=== PATIENT | female | born 1955 | race Caucasian/White ===

== ENCOUNTER 2016-12-30 10:30 | Inpatient (IN) | payer OTHER ==
[~2016-12-30] VITALS: Ht 144.8 cm; Wt 128.9 kg
[2016-12-30] VITALS (8 sets, daily range): BP systolic 130–180; BP diastolic 73–108
--- NOTE | ~2016-12-30 | PR ---
[place], [place] PROGRESS NOTE NAME: ZURI FUENTES [facility] #: [id number] UNIT #: [id number] ROOM: 428 DOCTOR: JAMEY NDIAYE III, DPM BIRTHDATE: [birth year] DOS: 01/01/2017 TIME OF DICTATION: 11:34 a.m. CHIEF COMPLAINT: Bilateral ankle pain, right greater than left. HISTORY OF PRESENT ILLNESS: This is a 61-year-old female with history of gout who denies history of diabetes, who states that she has had this ongoing right ankle pain for the last 3-4 days' duration. She states she has had these symptoms for the last 2 weeks' duration. She denies any type of injury. She does relate a history of surgery to bilateral feet in the past. Again, she denies any type of recent injury. She states she has not taken allopurinol in over a year duration. Her uric acid was over 10 on admission. PAST MEDICAL HISTORY: Significant for gout, hypertension, hypothyroidism, polycystic kidney disease. PAST SURGICAL HISTORY: History of ankle fracture, bilateral. History of tubal ligation and previous history of section. SOCIAL HISTORY: She does not drink alcohol, does not admit to any illicit drug use. She does not use tobacco. FAMILY HISTORY: Mother is at age 60 from cancer. Father at 48 of [place]. Brother had an TN at age 38. ALLERGIES: No known drug allergies. MEDICATIONS: Please refer to medication list. PHYSICAL EXAMINATION: VASCULAR: DP and PT pulses are palpable. CFT within normal limits, +2 pitting edema to bilateral lower extremities. DERMATOLOGY: The patient has dry flaky skin appreciated in bilateral lower legs. Some mild increased swelling appreciated to the right ankle. No signs of infection, no cellulitis, no open ulcerations. NEUROLOGIC: Intact protective sensation. ORTHO: Muscle strength is maintained. Negative Homans', negative calf pain. The patient has deep pain with palpation of the ankle and foot of the right as well as left lower extremity, right greater than left. Mild anterior ankle effusion on the right. ASSESSMENT: 1. Gout. 2. Edema. TREATMENT PLAN AND RECOMMENDATIONS: Findings as well as prognosis were discussed in detail with the patient. All questions were answered to her apparent satisfaction. This is a 61-year-old female seen at bedside for evaluation regarding bilateral ankle pain, right greater than left. Foot x-rays [place], [place] PROGRESS NOTE NAME: ZURI FUENTES UNIT #: [id number] ROOM: 428 DOCTOR: JAMEY NDIAYE III, DPM BIRTHDATE: [birth year] were reviewed, which showed no acute pathology. We will get updated ankle films bilateral. The patient appears to have gout based off of elevated uric acid above 10. I will continue with medication per Medicine team. At this time, we will compress the legs, which I feel will help with some of her discomfort as well. Therefore, bilateral Unna boots were applied to bilateral lower extremities. We can follow up with the patient on an outpatient basis. JAMEY NDIAYE III, DPM CM:MONTY [id number] JAMEY NDIAYE III, DPM 01/02/17 0050 interface
--- NOTE | ~2016-12-30 | PR ---
[place], [place] PROGRESS NOTE NAME: ZURI FUENTES [facility] #: [id number] UNIT #: [id number] ROOM: 428 DOCTOR: FREDDIE MATT DPM BIRTHDATE: [birth year] DOS: 01/02/2017 SUBJECTIVE: The patient presents after having Unna boots applied yesterday. The patient feels much improved with Unna boots and has much less pain to bilateral lower extremities. Again, the patient's venous Doppler and arterial Doppler were normal. The patient's radiographs, which were performed of bilateral ankle this visit revealed osteoporosis, soft tissue swelling, otherwise normal ankles. ASSESSMENT: Gout, edema, and venous insufficiency, improving with the Unna boots. PLAN: Evaluation and management discussed the patient. We will keep the Unna boots intact. They can be kept on up to a full week. The patient will be checked early next week if she is still inhouse otherwise can follow at the office. FREDDIE MATT DPM CM:MONTY [id number] FREDDIE MATT DPM 01/03/175 interface
[~2016-12-30 10:30] MED LIST: AMLODIPINE BESY10 MG PO; CLONIDINE0.2 MG PO; COLCHICINE0.6 MG PO; EC NAPROSYN500 MG; FLEXERIL10 MG PO; HYDROCODONE BIT1 T11 PO; INDOCIN50 MG PO; KEFLEX500 MG PO; LISINOPRIL10 MG PO; METOPROLOL1 MG/ML PO; MOTRIN800 MG PO; NEURONTIN300 MG PO; PRILOSEC OTC20 MG; PRILOSEC OTC20 MG PO; TRAMADOL50 MG PO; ZANAFLEX4 M1 PO; ZOCOR40 MG PO
[2016-12-30] MEDS ORDERED: NORCO 5-325 TA1 EACH PO (12:52)
[2016-12-30] MEDS ORDERED: NAPROSYN500 MG PO (12:52)
[2016-12-30 13:14] LABS: BASO % 0.4 % (0.0-1.0); EOS % 0.3 % (1.0-4.0); HEMATOCRIT 36.5 % (37.0-47.0); HEMOGLOBIN 11.9 g/dl (12.0-16.0); LYMPH # 0.7 10*3/uL (1.3-4.4); LYMPH % 6.5 % (27.0-41.0); MEAN CELL VOLUME 95.8 fl (81.0-99.0); MEAN CORPUSCULAR HGB 31.2 pg (27.0-31.0); MEAN CORPUSCULAR HGB CONC 32.6 g/dl (33.0-37.0); MEAN PLATELET VOLUME 10.1 fl (9.6-12.3); MONO # 0.7 10*3/uL (0.1-1.0); MONO % 6.7 % (3.0-9.0); NEUT # 8.8 10*3/uL (2.3-7.9); NEUT % 85.7 % (47.0-73.0); PLATELET COUNT AUTOMATED 263 10*3/uL (130-400); RED BLOOD COUNT 3.81 10*6/uL (4.10-5.10); RED CELL DISTRI WIDTH 13.1 % (0-14.5); WHITE BLOOD COUNT 10.3 10*3/uL (4.8-10.8)
[2016-12-30 13:30] LABS: ALBUMIN 3.1 gm/dl (3.1-4.5); BILIRUBIN, TOTAL 1.1 mg/dl (0.2-1.0); POTASSIUM 3.9 mmol/L (3.5-5.1); TOTAL PROTEIN 8.4 gm/dL (6.4-8.2); URIC ACID 10.6 mg/dL (2.6-6.0)
[2016-12-30 13:35] LABS: BILIRUBIN NEGATIVE (NEGATIVE); BLOOD 2+ (NEGATIVE); CLARITY CLOUDY (CLEAR); COLOR YELLOW (YELLOW); GLUCOSE NEGATIVE (NEGATIVE); KETONE 1+ (NEGATIVE); LEUKO ESTERASE 2+ (NEGATIVE); NITRITE POSITIVE (NEGATIVE); PH 5.5 (5.0-9.0); PROTEIN 2+ (NEGATIVE); SPECIFIC GRAVITY 1.025 (1.005-1.030); UROBILINOGEN 0.2 E.U./dl (0.2-1.0)
[2016-12-30 13:51] LABS: BACTERIA 3+; URINE REFLEX COMMENT YES (NO); WBC TNTC wbc/hpf (0-5)
[2016-12-30] MEDS ORDERED: LISINOPRIL20 MG PO (14:39)
[2016-12-30] MEDS ORDERED: VITAMIN D1000 IU PO (14:42)
[2016-12-30] MEDS ORDERED: ZYLOPRIM300 MG PO (14:43)
[2016-12-30] MEDS ORDERED: SYNTHROID25 MCG PO (14:43)
[2016-12-30 18:50] LABS: CKMB 0.7 ng/ml (0.5-3.6); CPK 63 U/L (26-192)
[2016-12-30 18:52] LABS: TROPONIN I < 0.015 ng/ml (<0.045)
[2016-12-31] VITALS: BP 112/63
[2016-12-31 00:39] LABS: CKMB 0.7 ng/ml (0.5-3.6); CPK 52 U/L (26-192)
[2016-12-31 00:40] LABS: TROPONIN I < 0.015 ng/ml (<0.045)
[2016-12-31 06:48] LABS: BASO # 0.1 10*3/uL (0.0-0.1); BASO % 0.6 % (0.0-1.0); EOS # 0.4 10*3/uL (0.0-0.4); EOS % 5.3 % (1.0-4.0); HEMATOCRIT 34.4 % (37.0-47.0); HEMOGLOBIN 11.2 g/dl (12.0-16.0); LYMPH # 1.2 10*3/uL (1.3-4.4); LYMPH % 15.5 % (27.0-41.0); MEAN CELL VOLUME 96.6 fl (81.0-99.0); MEAN CORPUSCULAR HGB 31.5 pg (27.0-31.0); MEAN CORPUSCULAR HGB CONC 32.6 g/dl (33.0-37.0); MEAN PLATELET VOLUME 10.5 fl (9.6-12.3); MONO # 0.8 10*3/uL (0.1-1.0); NEUT # 5.3 10*3/uL (2.3-7.9); NEUT % 68.1 % (47.0-73.0); PLATELET COUNT AUTOMATED 284 10*3/uL (130-400); RED BLOOD COUNT 3.56 10*6/uL (4.10-5.10); RED CELL DISTRI WIDTH 13.2 % (0-14.5); WHITE BLOOD COUNT 7.8 10*3/uL (4.8-10.8)
[2016-12-31 07:03] LABS: CKMB 0.7 ng/ml (0.5-3.6); CPK 39 U/L (26-192)
[2016-12-31 07:04] LABS: HEMOGLOBIN A1c 5.6 % (4.8-5.6)
[2016-12-31 07:06] LABS: TROPONIN I < 0.015 ng/ml (<0.045)
[2016-12-31 07:33] LABS: POTASSIUM 3.8 mmol/L (3.5-5.1)
[2016-12-31 07:48] LABS: FREE T4 1.65 ng/dl (0.76-1.46); MAGNESIUM 1.7 mg/dL (1.5-2.1); PHOSPHOROUS 3.4 mg/dL (2.5-4.9); THYROID STIM HORMONE (HS) 5.48 uIU/ml (0.358-4.75)
[2016-12-31 08:00] VITALS: BP 160/93
[2016-12-31 09:28] LABS: FOLIC ACID 5.48 ng/mL (>5.38)
[2016-12-31 12:00] VITALS: BP 156/89
[2016-12-31 16:00] VITALS: BP 110/71
[2016-12-31] MEDS ORDERED: WALKER (16:43)
[2016-12-31 20:00] VITALS: BP 132/73
[2017-01-01] VITALS: BP 123/73
[2017-01-01 06:40] LABS: BASO # 0.1 10*3/uL (0.0-0.1); BASO % 0.7 % (0.0-1.0); EOS # 0.7 10*3/uL (0.0-0.4); EOS % 9.8 % (1.0-4.0); HEMATOCRIT 34.4 % (37.0-47.0); HEMOGLOBIN 11.2 g/dl (12.0-16.0); LYMPH # 1.3 10*3/uL (1.3-4.4); LYMPH % 18.8 % (27.0-41.0); MEAN CORPUSCULAR HGB 31.9 pg (27.0-31.0); MEAN CORPUSCULAR HGB CONC 32.6 g/dl (33.0-37.0); MEAN PLATELET VOLUME 10.4 fl (9.6-12.3); MONO # 0.7 10*3/uL (0.1-1.0); MONO % 10.1 % (3.0-9.0); NEUT % 60.2 % (47.0-73.0); PLATELET COUNT AUTOMATED 287 10*3/uL (130-400); RED BLOOD COUNT 3.51 10*6/uL (4.10-5.10); RED CELL DISTRI WIDTH 13.2 % (0-14.5); WHITE BLOOD COUNT 6.7 10*3/uL (4.8-10.8)
[2017-01-01 07:05] LABS: POTASSIUM 3.9 mmol/L (3.5-5.1)
[2017-01-01 08:00] VITALS: BP 137/86
[2017-01-01 12:00] VITALS: BP 114/63
[2017-01-01 16:00] VITALS: BP 154/94
[2017-01-01 20:00] VITALS: BP 148/78
[2017-01-02] VITALS: BP 116/69
[2017-01-02 06:54] LABS: BASO % 0.5 % (0.0-1.0); EOS # 0.7 10*3/uL (0.0-0.4); EOS % 12.1 % (1.0-4.0); HEMATOCRIT 32.1 % (37.0-47.0); HEMOGLOBIN 10.4 g/dl (12.0-16.0); LYMPH # 0.9 10*3/uL (1.3-4.4); LYMPH % 16.2 % (27.0-41.0); MEAN CELL VOLUME 97.3 fl (81.0-99.0); MEAN CORPUSCULAR HGB 31.5 pg (27.0-31.0); MEAN CORPUSCULAR HGB CONC 32.4 g/dl (33.0-37.0); MEAN PLATELET VOLUME 10.1 fl (9.6-12.3); MONO # 0.6 10*3/uL (0.1-1.0); MONO % 10.5 % (3.0-9.0); NEUT # 3.5 10*3/uL (2.3-7.9); NEUT % 60.4 % (47.0-73.0); PLATELET COUNT AUTOMATED 232 10*3/uL (130-400); RED CELL DISTRI WIDTH 13.2 % (0-14.5); WHITE BLOOD COUNT 5.8 10*3/uL (4.8-10.8)
[2017-01-02 07:06] LABS: POTASSIUM 3.8 mmol/L (3.5-5.1)
[2017-01-02 08:00] VITALS: BP 166/82
[2017-01-02 11:38] VITALS: BP 137/89
[2017-01-02] MEDS ORDERED: NEURONTIN300 MG PO (14:00)
[2017-01-02] MEDS ORDERED: D-1000 185 MG-11 TAB PO (14:00)
[2017-01-02] MEDS ORDERED: COLCHICINE0.6 M1 PO (14:00)
[2017-01-02] MEDS ORDERED: PROCARDIA XL30 MG PO (14:05)
[2017-01-02] MEDS ORDERED: DOXYCYCLINE100 M3 PO (14:13)
[2017-01-02 16:00] VITALS: BP 160/97
[2017-01-02 20:00] VITALS: BP 145/85
[2017-01-03] VITALS: BP 105/64
[2017-01-03 08:00] VITALS: BP 150/83
== END 2017-01-03 09:43 | disposition other institution (70) | DRG 554 ==
LOC: ED 10:30 → 4E 13:39 → EDHOLD 13:39 → 4E 14:01
PROVIDERS: Hospitalist; Nurse Practitioner Family; Student in an Organized Health Care Education/Training Program
DX: M10.071 Idiopathic gout, right ankle and foot (principal); N17.9 Acute kidney failure, unspecified; E44.0 Moderate protein-calorie malnutrition; Q61.3 Polycystic kidney, unspecified; N18.3 Chronic kidney disease, stage 3 (moderate); N39.0 Urinary tract infection, site not specified; I16.0 Hypertensive urgency; D64.9 Anemia, unspecified; E03.9 Hypothyroidism, unspecified; I87.2 Venous insufficiency (chronic) (peripheral); M81.0 Age-related osteoporosis without current pathological fracture; I12.9 Hypertensive chronic kidney disease with stage 1 through stage 4 chronic kidney disease, or unspecified chronic kidney disease; Z98.51 Tubal ligation status; Z98.891 History of uterine scar from previous surgery; Z87.81 Personal history of (healed) traumatic fracture; Z82.49 Family history of ischemic heart disease and other diseases of the circulatory system; Z80.9 Family history of malignant neoplasm, unspecified; Z79.899 Other long term (current) drug therapy; Z68.33 Body mass index [BMI] 33.0-33.9, adult

== ENCOUNTER → 2017-10-02 | Outpatient (CLI) | payer OTHER ==
[~2017-10-02] MED LIST changes: +COLCHICINE0.6 M1 PO; +D-1000 185 MG-11 TAB PO; +DOXYCYCLINE100 M3 PO; +LISINOPRIL20 MG PO; +NAPROSYN500 MG PO; +NORCO 5-325 TA1 EACH PO; +PROCARDIA XL30 MG PO; +SYNTHROID25 MCG PO; +VITAMIN D1000 IU PO; +WALKER; +ZYLOPRIM300 MG PO
[2017-10-02 11:05] LABS: BASO % 0.4 % (0.0-1.0); EOS # 0.6 10*3/uL (0.0-0.4); EOS % 7.7 % (1.0-4.0); HEMATOCRIT 36.6 % (37.0-47.0); HEMOGLOBIN 11.7 g/dl (12.0-16.0); LYMPH # 1.6 10*3/uL (1.3-4.4); LYMPH % 21.6 % (27.0-41.0); MEAN CELL VOLUME 97.1 fl (81.0-99.0); MEAN PLATELET VOLUME 11.5 fl (9.6-12.3); MONO # 0.5 10*3/uL (0.1-1.0); MONO % 7.4 % (3.0-9.0); NEUT # 4.5 10*3/uL (2.3-7.9); NEUT % 62.5 % (47.0-73.0); PLATELET COUNT AUTOMATED 264 10*3/uL (130-400); RED BLOOD COUNT 3.77 10*6/uL (4.10-5.10); WHITE BLOOD COUNT 7.2 10*3/uL (4.8-10.8)
[2017-10-02 11:22] LABS: ALBUMIN 3.7 gm/dl (3.1-4.5); CREATININE 1.71 mg/dL (0.55-1.02); FREE T4 1.23 ng/dl (0.76-1.46); POTASSIUM 4.2 mmol/L (3.5-5.1); TOTAL PROTEIN 8.4 gm/dL (6.4-8.2)
[2017-10-02 11:27] LABS: THYROID STIM HORMONE (HS) 7.75 uIU/ml (0.358-4.75)
[2017-10-03 09:07] LABS: CREATININE,URINE 79.9 mg/dL (Not Estab.); MICRO ALBUMIN/CRE RATIO 36.7 (0.0-30.0)
== END | disposition home or self-care (01) ==
LOC: LAB 10:16
PROVIDERS: Family Medicine
DX: I10 Essential (primary) hypertension (principal); E55.9 Vitamin D deficiency, unspecified; E03.1 Congenital hypothyroidism without goiter

== ENCOUNTER → 2017-12-11 | Outpatient (CLI) | payer OTHER ==
[2017-12-11 10:19] LABS: BASO # 0.1 10*3/uL (0.0-0.1); BASO % 0.8 % (0.0-1.0); EOS # 0.6 10*3/uL (0.0-0.4); HEMATOCRIT 39.4 % (37.0-47.0); HEMOGLOBIN 12.7 g/dl (12.0-16.0); LYMPH # 2.3 10*3/uL (1.3-4.4); LYMPH % 31.2 % (27.0-41.0); MEAN CELL VOLUME 94.5 fl (81.0-99.0); MEAN CORPUSCULAR HGB 30.5 pg (27.0-31.0); MEAN CORPUSCULAR HGB CONC 32.2 g/dl (33.0-37.0); MEAN PLATELET VOLUME 11.3 fl (9.6-12.3); MONO # 0.6 10*3/uL (0.1-1.0); MONO % 8.5 % (3.0-9.0); NEUT # 3.7 10*3/uL (2.3-7.9); NEUT % 51.2 % (47.0-73.0); PLATELET COUNT AUTOMATED 251 10*3/uL (130-400); RED BLOOD COUNT 4.17 10*6/uL (4.10-5.10); RED CELL DISTRI WIDTH 13.9 % (0-14.5); WHITE BLOOD COUNT 7.3 10*3/uL (4.8-10.8)
[2017-12-11 10:43] LABS: ALBUMIN 3.4 gm/dl (3.1-4.5); CREATININE 1.48 mg/dL (0.55-1.02); TOTAL PROTEIN 8.1 gm/dL (6.4-8.2); URIC ACID 8.1 mg/dL (2.6-6.0)
[2017-12-11 10:52] LABS: THYROID STIM HORMONE (HS) 5.74 uIU/ml (0.358-4.75)
== END | disposition home or self-care (01) ==
LOC: LAB 09:26
PROVIDERS: Family Medicine
DX: M10.9 Gout, unspecified (principal); E55.9 Vitamin D deficiency, unspecified; I10 Essential (primary) hypertension

== ENCOUNTER 2021-04-12 19:16 | Inpatient (IN) | payer MEDICARE, MEDICAID ==
[~2021-04-12] VITALS: Ht 162.6 cm; Wt 108.4 kg
[2021-04-12 20:03] VITALS: BP 153/89
[2021-04-12 20:18] LABS: BASO % 0.5 % (0.0-1.0); EOS # 0.3 10*3/uL (0.0-0.4); EOS % 3.1 % (1.0-4.0); HEMATOCRIT 32.2 % (37.0-47.0); LYMPH # 0.8 10*3/uL (1.3-4.4); LYMPH % 9.7 % (27.0-41.0); MEAN CELL VOLUME 100.6 fl (81.0-99.0); MEAN CORPUSCULAR HGB 30.9 pg (27.0-31.0); MEAN CORPUSCULAR HGB CONC 30.7 g/dl (33.0-37.0); MEAN PLATELET VOLUME 11.8 fl (9.6-12.3); MONO # 0.6 10*3/uL (0.1-1.0); MONO % 7.5 % (3.0-9.0); NEUT # 6.4 10*3/uL (2.3-7.9); PLATELET COUNT AUTOMATED 251 10*3/uL (130-400); RED CELL DISTRI WIDTH 15.1 % (0-14.5); WHITE BLOOD COUNT 8.2 10*3/uL (4.8-10.8)
[2021-04-12 20:38] LABS: ALBUMIN 2.8 gm/dl (3.1-4.5); ALKALINE PHOSPHATASE 117 U/L (45-117); BUN 25 mg/dl (7-24); CHLORIDE 108 mmol/L (98-107); CREATININE 2.92 mg/dL (0.55-1.02); POTASSIUM 5.2 mmol/L (3.5-5.1); SGOT/AST 33 IU/L (3-35); SGPT/ALT 23 U/L (12-78); SODIUM 139 mmol/L (136-145); TOTAL PROTEIN 8.6 gm/dL (6.4-8.2)
[2021-04-12 20:39] LABS: TROPONIN I < 0.015 ng/ml (<0.045)
[2021-04-12 22:51] VITALS: BP 145/71
[2021-04-12 23:37] LABS: BILIRUBIN Negative (Negative); BLOOD 1+ (Negative); CLARITY Turbid (Clear); COLOR Yellow (Yellow); GLUCOSE Negative (Negative); KETONE Trace (Negative); LEUKO ESTERASE 3+ (Negative); NITRITE Positive (Negative); PH 5.5 (4.5-8.0); SPECIFIC GRAVITY 1.015 (1.001-1.030)
[2021-04-12 23:48] LABS: BACTERIA 4+; EPITHELIAL CELLS TNTC; WBC 51-100 wbc/hpf (0-5)
[2021-04-12 23:49] LABS: RBC 16-20 rbc/hpf (0-2)
[2021-04-13] VITALS (7 sets, daily range): BP systolic 100–155; BP diastolic 47–92
[2021-04-13 05:16] LABS: CREATININE 2.56 mg/dL (0.55-1.02); POTASSIUM 4.9 mmol/L (3.5-5.1)
[2021-04-13 06:34] LABS: BASO % 0.5 % (0.0-1.0); EOS # 0.1 10*3/uL (0.0-0.4); EOS % 1.2 % (1.0-4.0); HEMATOCRIT 25.8 % (37.0-47.0); LYMPH # 0.7 10*3/uL (1.3-4.4); LYMPH % 12.3 % (27.0-41.0); MEAN CELL VOLUME 100.4 fl (81.0-99.0); MEAN CORPUSCULAR HGB 30.7 pg (27.0-31.0); MEAN CORPUSCULAR HGB CONC 30.6 g/dl (33.0-37.0); MEAN PLATELET VOLUME 12.3 fl (9.6-12.3); MONO # 0.5 10*3/uL (0.1-1.0); NEUT # 4.4 10*3/uL (2.3-7.9); NEUT % 76.7 % (47.0-73.0); RED BLOOD COUNT 2.57 10*6/uL (4.10-5.10); RED CELL DISTRI WIDTH 15.2 % (0-14.5); WHITE BLOOD COUNT 5.8 10*3/uL (4.8-10.8)
[2021-04-13 07:44] LABS: PLATELET COUNT AUTOMATED 163 10*3/uL (130-400)
[2021-04-14] VITALS: BP 121/66
[2021-04-14 04:00] VITALS: BP 117/64
[2021-04-14 06:06] LABS: BASO % 0.5 % (0.0-1.0); EOS # 0.4 10*3/uL (0.0-0.4); EOS % 9.7 % (1.0-4.0); HEMATOCRIT 23.7 % (37.0-47.0); LYMPH # 1.2 10*3/uL (1.3-4.4); LYMPH % 29.7 % (27.0-41.0); MEAN CELL VOLUME 100.9 fl (81.0-99.0); MEAN CORPUSCULAR HGB 30.6 pg (27.0-31.0); MEAN CORPUSCULAR HGB CONC 30.4 g/dl (33.0-37.0); MEAN PLATELET VOLUME 12.7 fl (9.6-12.3); MONO # 0.4 10*3/uL (0.1-1.0); MONO % 9.9 % (3.0-9.0); NEUT % 49.7 % (47.0-73.0); PLATELET COUNT AUTOMATED 134 10*3/uL (130-400); RED BLOOD COUNT 2.35 10*6/uL (4.10-5.10); RED CELL DISTRI WIDTH 15.2 % (0-14.5)
[2021-04-14 06:50] LABS: CREATININE 2.28 mg/dL (0.55-1.02); POTASSIUM 4.6 mmol/L (3.5-5.1)
[2021-04-14 08:00] VITALS: BP 129/69
[2021-04-14 12:00] VITALS: BP 120/76
[2021-04-14 16:00] VITALS: BP 136/77
[2021-04-14 20:00] VITALS: BP 121/58
[2021-04-15] VITALS: BP 133/60
[2021-04-15 06:13] LABS: BASO % 0.7 % (0.0-1.0); EOS # 0.6 10*3/uL (0.0-0.4); EOS % 13.7 % (1.0-4.0); HEMATOCRIT 25.1 % (37.0-47.0); LYMPH % 25.9 % (27.0-41.0); MEAN CELL VOLUME 101.6 fl (81.0-99.0); MEAN CORPUSCULAR HGB 31.6 pg (27.0-31.0); MEAN CORPUSCULAR HGB CONC 31.1 g/dl (33.0-37.0); MEAN PLATELET VOLUME 12.1 fl (9.6-12.3); MONO # 0.4 10*3/uL (0.1-1.0); NEUT % 49.2 % (47.0-73.0); PLATELET COUNT AUTOMATED 140 10*3/uL (130-400); RED BLOOD COUNT 2.47 10*6/uL (4.10-5.10); RED CELL DISTRI WIDTH 15.1 % (0-14.5)
[2021-04-15 06:29] LABS: CREATININE 1.99 mg/dL (0.55-1.02); POTASSIUM 4.4 mmol/L (3.5-5.1)
[2021-04-15 06:36] LABS: THYROID STIM HORMONE (HS) 5.41 uIU/ml (0.358-4.75)
[2021-04-15 07:52] LABS: FERRITIN 14.6 ng/mL (10.0-291.0); PTH INTACT 278.1 pg/mL (18.5-88.0); VITAMIN D, 25-HYDROXY 10.6 ng/mL (30-100)
[2021-04-15 08:48] VITALS: BP 155/78
[2021-04-15 12:00] VITALS: BP 155/78
[2021-04-15 16:00] VITALS: BP 150/79
[2021-04-15 20:00] VITALS: BP 146/64
[2021-04-16] VITALS: BP 157/94
[2021-04-16 06:46] LABS: CREATININE 1.76 mg/dL (0.55-1.02); POTASSIUM 4.2 mmol/L (3.5-5.1)
[2021-04-16 07:02] LABS: BASO % 0.9 % (0.0-1.0); EOS # 0.6 10*3/uL (0.0-0.4); EOS % 15.2 % (1.0-4.0); HEMATOCRIT 28.6 % (37.0-47.0); LYMPH % 23.2 % (27.0-41.0); MEAN CORPUSCULAR HGB 30.8 pg (27.0-31.0); MEAN CORPUSCULAR HGB CONC 28.7 g/dl (33.0-37.0); MEAN PLATELET VOLUME 11.8 fl (9.6-12.3); MONO # 0.4 10*3/uL (0.1-1.0); MONO % 9.5 % (3.0-9.0); NEUT # 2.1 10*3/uL (2.3-7.9); NEUT % 50.7 % (47.0-73.0); PLATELET COUNT AUTOMATED 146 10*3/uL (130-400); RED BLOOD COUNT 2.66 10*6/uL (4.10-5.10); WHITE BLOOD COUNT 4.2 10*3/uL (4.8-10.8)
[2021-04-16 07:10] LABS: MEAN CELL VOLUME 107.5 fl (81.0-99.0)
[2021-04-16 08:00] VITALS: BP 152/79
[2021-04-16 12:00] VITALS: BP 148/94
[2021-04-16 16:00] VITALS: BP 136/77
[2021-04-16 20:00] VITALS: BP 135/71
[2021-04-17] VITALS: BP 141/86
[2021-04-17 06:54] LABS: CREATININE 1.59 mg/dL (0.55-1.02); POTASSIUM 4.5 mmol/L (3.5-5.1)
[2021-04-17 07:20] LABS: BASO % 0.9 % (0.0-1.0); EOS # 0.7 10*3/uL (0.0-0.4); EOS % 15.8 % (1.0-4.0); HEMATOCRIT 27.5 % (37.0-47.0); LYMPH # 1.1 10*3/uL (1.3-4.4); LYMPH % 26.4 % (27.0-41.0); MEAN CORPUSCULAR HGB 31.1 pg (27.0-31.0); MEAN CORPUSCULAR HGB CONC 30.9 g/dl (33.0-37.0); MEAN PLATELET VOLUME 12.2 fl (9.6-12.3); MONO # 0.4 10*3/uL (0.1-1.0); MONO % 9.4 % (3.0-9.0); PLATELET COUNT AUTOMATED 168 10*3/uL (130-400); RED BLOOD COUNT 2.73 10*6/uL (4.10-5.10); RED CELL DISTRI WIDTH 14.8 % (0-14.5); WHITE BLOOD COUNT 4.3 10*3/uL (4.8-10.8)
[2021-04-17 07:23] LABS: MEAN CELL VOLUME 100.7 fl (81.0-99.0)
[2021-04-17 07:44] LABS: THYROID STIM HORMONE (HS) 10.2 uIU/ml (0.358-4.75)
[2021-04-17 08:00] VITALS: BP 110/64
[2021-04-17 08:40] LABS: PTH INTACT 271.9 pg/mL (18.5-88.0); VITAMIN D, 25-HYDROXY 12.9 ng/mL (30-100)
[2021-04-17 12:00] VITALS: BP 143/60
[2021-04-17] MEDS ORDERED: CIPRO500 MG PO (13:31)
[2021-04-17] MEDS ORDERED: IRON325 M1 PO (13:31)
[2021-04-17] MEDS ORDERED: Synthroid,Levo50 MCG PO (13:32)
[2021-04-17] MEDS ORDERED: Vitamin D (50,000 UN PO (13:32)
[2021-04-17 16:00] VITALS: BP 158/88
[2021-04-17 20:00] VITALS: BP 142/76
[2021-04-18] VITALS: BP 145/59
[2021-04-18 07:14] LABS: BASO % 0.7 % (0.0-1.0); EOS # 0.7 10*3/uL (0.0-0.4); EOS % 17.7 % (1.0-4.0); HEMATOCRIT 26.6 % (37.0-47.0); LYMPH % 24.3 % (27.0-41.0); MEAN CELL VOLUME 102.7 fl (81.0-99.0); MEAN CORPUSCULAR HGB 31.3 pg (27.0-31.0); MEAN CORPUSCULAR HGB CONC 30.5 g/dl (33.0-37.0); MEAN PLATELET VOLUME 12.2 fl (9.6-12.3); MONO # 0.4 10*3/uL (0.1-1.0); MONO % 9.7 % (3.0-9.0); NEUT # 1.9 10*3/uL (2.3-7.9); NEUT % 47.1 % (47.0-73.0); PLATELET COUNT AUTOMATED 168 10*3/uL (130-400); RED BLOOD COUNT 2.59 10*6/uL (4.10-5.10); RED CELL DISTRI WIDTH 14.8 % (0-14.5); WHITE BLOOD COUNT 4.1 10*3/uL (4.8-10.8)
[2021-04-18 08:00] VITALS: BP 159/88
[2021-04-18 08:09] LABS: ALBUMIN 2.1 gm/dl (3.1-4.5); CREATININE 1.45 mg/dL (0.55-1.02); POTASSIUM 5.3 mmol/L (3.5-5.1)
[2021-04-18 08:18] LABS: TOTAL PROTEIN 6.4 gm/dL (6.4-8.2)
[2021-04-18 12:00] VITALS: BP 156/78
[2021-04-18 13:06] LABS: BILIRUBIN Negative (Negative); BLOOD Negative (Negative); CLARITY Clear (Clear); COLOR Yellow (Yellow); GLUCOSE Negative (Negative); KETONE Negative (Negative); LEUKO ESTERASE Negative (Negative); NITRITE Negative (Negative); PH 5.5 (4.5-8.0); SPECIFIC GRAVITY 1.015 (1.001-1.030); UROBILINOGEN 0.2 E.U./dl (0.0-1.0)
[2021-04-18 13:18] LABS: EPITHELIAL CELLS 21-30; RBC 0-2 rbc/hpf (0-2)
[2021-04-18 13:19] LABS: BACTERIA TRACE
[2021-04-18 16:00] VITALS: BP 129/57; BP 142/88
[2021-04-18 20:00] VITALS: BP 158/86
[2021-04-19] VITALS: BP 129/60
[2021-04-19 06:25] LABS: BASO # 0.1 10*3/uL (0.0-0.1); BASO % 1.2 % (0.0-1.0); EOS # 0.7 10*3/uL (0.0-0.4); EOS % 15.8 % (1.0-4.0); LYMPH # 1.2 10*3/uL (1.3-4.4); LYMPH % 27.7 % (27.0-41.0); MEAN CELL VOLUME 102.4 fl (81.0-99.0); MEAN CORPUSCULAR HGB 30.7 pg (27.0-31.0); MEAN PLATELET VOLUME 12.1 fl (9.6-12.3); MONO # 0.5 10*3/uL (0.1-1.0); MONO % 10.5 % (3.0-9.0); NEUT # 1.9 10*3/uL (2.3-7.9); NEUT % 44.6 % (47.0-73.0); PLATELET COUNT AUTOMATED 162 10*3/uL (130-400); RED BLOOD COUNT 2.54 10*6/uL (4.10-5.10); RED CELL DISTRI WIDTH 14.8 % (0-14.5); WHITE BLOOD COUNT 4.3 10*3/uL (4.8-10.8)
[2021-04-19 06:27] LABS: ALBUMIN 2.1 gm/dl (3.1-4.5); POTASSIUM 5.4 mmol/L (3.5-5.1)
[2021-04-19 06:37] LABS: CREATININE 1.43 mg/dL (0.55-1.02); TOTAL PROTEIN 6.1 gm/dL (6.4-8.2)
[2021-04-19 08:00] VITALS: BP 126/63
[2021-04-19 12:00] VITALS: BP 138/79
[2021-04-19 16:00] VITALS: BP 135/80
[2021-04-19 18:38] LABS: CREATININE 1.72 mg/dL (0.55-1.02)
[2021-04-19] MEDS ORDERED: LASIX20 MG PO (18:53)
== END 2021-04-19 20:27 | disposition home or self-care (01) | DRG 871 ==
LOC: ED 19:16 → EDHOLD 04-13 01:21 → 4E 04-13 01:21 → 5E 04-18 23:01
PROVIDERS: Emergency Medicine; Internal Medicine; Internal Medicine Nephrology; Podiatrist Foot & Ankle Surgery; ADMIT Internal Medicine; ATTEND Internal Medicine
PROC: 0HBRXZZ Excision of Toe Nail, External Approach (ICD-10-PCS; principal; 2021-04-13)
PROC: 0HBRXZZ Excision of Toe Nail, External Approach (ICD-10-PCS; 2021-04-13)
PROC: 0HBRXZZ Excision of Toe Nail, External Approach (ICD-10-PCS; 2021-04-13)
PROC: 0HBRXZZ Excision of Toe Nail, External Approach (ICD-10-PCS; 2021-04-13)
PROC: 0HBRXZZ Excision of Toe Nail, External Approach (ICD-10-PCS; 2021-04-13)
PROC: 0HBRXZZ Excision of Toe Nail, External Approach (ICD-10-PCS; 2021-04-13)
PROC: 0HBRXZZ Excision of Toe Nail, External Approach (ICD-10-PCS; 2021-04-13)
PROC: 0HBRXZZ Excision of Toe Nail, External Approach (ICD-10-PCS; 2021-04-13)
PROC: 0HBRXZZ Excision of Toe Nail, External Approach (ICD-10-PCS; 2021-04-13)
PROC: 0HBRXZZ Excision of Toe Nail, External Approach (ICD-10-PCS; 2021-04-13)
DX: A41.9 Sepsis, unspecified organism (principal); G93.41 Metabolic encephalopathy; E43 Unspecified severe protein-calorie malnutrition; N17.0 Acute kidney failure with tubular necrosis; N39.0 Urinary tract infection, site not specified; E87.2 Acidosis; Q61.3 Polycystic kidney, unspecified; R31.9 Hematuria, unspecified; M1A.9XX0 Chronic gout, unspecified, without tophus (tophi); S31.000A Unspecified open wound of lower back and pelvis without penetration into retroperitoneum, initial encounter; S81.809A Unspecified open wound, unspecified lower leg, initial encounter; R21 Rash and other nonspecific skin eruption; B96.20 Unspecified Escherichia coli [E. coli] as the cause of diseases classified elsewhere; S41.101A Unspecified open wound of right upper arm, initial encounter; M89.9 Disorder of bone, unspecified; D63.8 Anemia in other chronic diseases classified elsewhere; E66.01 Morbid (severe) obesity due to excess calories; B35.1 Tinea unguium; I12.9 Hypertensive chronic kidney disease with stage 1 through stage 4 chronic kidney disease, or unspecified chronic kidney disease; N18.32 Chronic kidney disease, stage 3b; D50.9 Iron deficiency anemia, unspecified; B88.8 Other specified infestations; R65.20 Severe sepsis without septic shock; E03.9 Hypothyroidism, unspecified; E87.5 Hyperkalemia; E87.8 Other disorders of electrolyte and fluid balance, not elsewhere classified; R73.9 Hyperglycemia, unspecified; D72.10 Eosinophilia, unspecified; S41.102A Unspecified open wound of left upper arm, initial encounter; X58.XXXA Exposure to other specified factors, initial encounter; Y93.89 Activity, other specified; Y92.89 Other specified places as the place of occurrence of the external cause; Y99.8 Other external cause status; Z98.51 Tubal ligation status; Z98.891 History of uterine scar from previous surgery; Z82.49 Family history of ischemic heart disease and other diseases of the circulatory system

== ENCOUNTER 2021-05-15 17:04 | Inpatient (IN) | payer MEDICARE ==
[~2021-05-15] VITALS: Ht 162.6 cm; Wt 106.1 kg
[~2021-05-15 17:04] MED LIST changes: +CIPRO500 MG PO; +IRON325 M1 PO; +LASIX20 MG PO; +Synthroid,Levo50 MCG PO; +Vitamin D (50,000 UN PO
[2021-05-15 18:26] VITALS: BP 124/69
[2021-05-15 18:36] LABS: BASO % 0.2 % (0.0-1.0); EOS # 0.1 10*3/uL (0.0-0.4); EOS % 1.8 % (1.0-4.0); HEMATOCRIT 31.5 % (37.0-47.0); LYMPH # 0.6 10*3/uL (1.3-4.4); LYMPH % 10.7 % (27.0-41.0); MEAN CELL VOLUME 100.3 fl (81.0-99.0); MEAN CORPUSCULAR HGB 30.6 pg (27.0-31.0); MEAN CORPUSCULAR HGB CONC 30.5 g/dl (33.0-37.0); MEAN PLATELET VOLUME 11.9 fl (9.6-12.3); MONO # 0.4 10*3/uL (0.1-1.0); MONO % 6.5 % (3.0-9.0); NEUT # 4.4 10*3/uL (2.3-7.9); NEUT % 80.3 % (47.0-73.0); PLATELET COUNT AUTOMATED 154 10*3/uL (130-400); RED BLOOD COUNT 3.14 10*6/uL (4.10-5.10); RED CELL DISTRI WIDTH 15.3 % (0-14.5); WHITE BLOOD COUNT 5.5 10*3/uL (4.8-10.8)
[2021-05-15 18:54] LABS: ALBUMIN 2.5 gm/dl (3.1-4.5); CREATININE 1.97 mg/dL (0.55-1.02); POTASSIUM 4.5 mmol/L (3.5-5.1); TOTAL PROTEIN 7.4 gm/dL (6.4-8.2)
[2021-05-15 20:53] LABS: BILIRUBIN Negative (Negative); BLOOD Negative (Negative); CLARITY Cloudy (Clear); COLOR Yellow (Yellow); GLUCOSE Negative (Negative); KETONE Trace (Negative); LEUKO ESTERASE 3+ (Negative); NITRITE Negative (Negative); SPECIFIC GRAVITY 1.015 (1.001-1.030)
[2021-05-15 21:11] LABS: BACTERIA 4+; EPITHELIAL CELLS 16-20; WBC 51-100 wbc/hpf (0-5)
[2021-05-16 00:46] VITALS: BP 139/67
[2021-05-16 05:33] LABS: ALBUMIN 2.3 gm/dl (3.1-4.5); CREATININE 1.89 mg/dL (0.55-1.02); TOTAL PROTEIN 6.5 gm/dL (6.4-8.2)
[2021-05-16 05:39] LABS: THYROID STIM HORMONE (HS) 6.22 uIU/ml (0.358-4.75)
[2021-05-16 06:17] LABS: BASO % 0.5 % (0.0-1.0); EOS # 0.2 10*3/uL (0.0-0.4); EOS % 3.7 % (1.0-4.0); HEMATOCRIT 28.7 % (37.0-47.0); LYMPH # 0.8 10*3/uL (1.3-4.4); LYMPH % 19.6 % (27.0-41.0); MEAN CORPUSCULAR HGB 30.7 pg (27.0-31.0); MEAN CORPUSCULAR HGB CONC 30.7 g/dl (33.0-37.0); MEAN PLATELET VOLUME 12.5 fl (9.6-12.3); MONO # 0.4 10*3/uL (0.1-1.0); MONO % 10.3 % (3.0-9.0); NEUT # 2.7 10*3/uL (2.3-7.9); NEUT % 65.7 % (47.0-73.0); PLATELET COUNT AUTOMATED 136 10*3/uL (130-400); RED BLOOD COUNT 2.87 10*6/uL (4.10-5.10); RED CELL DISTRI WIDTH 15.1 % (0-14.5); WHITE BLOOD COUNT 4.1 10*3/uL (4.8-10.8)
[2021-05-16 06:26] LABS: INTERNATIONAL NORM RATIO 1.3 (2.0-3.5)
[2021-05-16 07:24] LABS: VITAMIN D, 25-HYDROXY 26.3 ng/mL (30-100)
[2021-05-16 09:28] VITALS: BP 125/69
[2021-05-17 00:42] VITALS: BP 125/69
[2021-05-17 08:00] VITALS: BP 109/56
[2021-05-17 11:09] LABS: BASO % 0.5 % (0.0-1.0); EOS # 0.5 10*3/uL (0.0-0.4); EOS % 7.1 % (1.0-4.0); HEMATOCRIT 29.5 % (37.0-47.0); LYMPH # 1.9 10*3/uL (1.3-4.4); LYMPH % 29.9 % (27.0-41.0); MEAN CELL VOLUME 100.7 fl (81.0-99.0); MEAN CORPUSCULAR HGB 31.1 pg (27.0-31.0); MEAN CORPUSCULAR HGB CONC 30.8 g/dl (33.0-37.0); MEAN PLATELET VOLUME 12.3 fl (9.6-12.3); MONO # 0.5 10*3/uL (0.1-1.0); MONO % 7.3 % (3.0-9.0); NEUT # 3.5 10*3/uL (2.3-7.9); NEUT % 54.9 % (47.0-73.0); PLATELET COUNT AUTOMATED 147 10*3/uL (130-400); RED BLOOD COUNT 2.93 10*6/uL (4.10-5.10); RED CELL DISTRI WIDTH 15.2 % (0-14.5); WHITE BLOOD COUNT 6.5 10*3/uL (4.8-10.8)
[2021-05-17 11:17] LABS: CREATININE 2.53 mg/dL (0.55-1.02); POTASSIUM 4.1 mmol/L (3.5-5.1)
[2021-05-17 12:00] VITALS: BP 104/56
[2021-05-17 12:56] LABS: ACT PARTIAL THROMBO TIME 24.9 SECONDS (20.0-32.1); INTERNATIONAL NORM RATIO 1.3 (2.0-3.5)
[2021-05-17 16:00] VITALS: BP 104/68
[2021-05-17 20:00] VITALS: BP 99/54
[2021-05-18] VITALS: BP 99/50
[2021-05-18 06:23] LABS: POTASSIUM 4.1 mmol/L (3.5-5.1)
[2021-05-18 06:30] LABS: CREATININE 2.17 mg/dL (0.55-1.02)
[2021-05-18 06:36] LABS: BASO % 0.5 % (0.0-1.0); EOS # 0.4 10*3/uL (0.0-0.4); EOS % 9.5 % (1.0-4.0); HEMATOCRIT 24.6 % (37.0-47.0); LYMPH # 1.3 10*3/uL (1.3-4.4); LYMPH % 31.8 % (27.0-41.0); MEAN CELL VOLUME 101.2 fl (81.0-99.0); MEAN CORPUSCULAR HGB 31.3 pg (27.0-31.0); MEAN CORPUSCULAR HGB CONC 30.9 g/dl (33.0-37.0); MEAN PLATELET VOLUME 12.6 fl (9.6-12.3); MONO # 0.3 10*3/uL (0.1-1.0); MONO % 8.3 % (3.0-9.0); NEUT % 49.7 % (47.0-73.0); RED BLOOD COUNT 2.43 10*6/uL (4.10-5.10); RED CELL DISTRI WIDTH 15.3 % (0-14.5); WHITE BLOOD COUNT 4.1 10*3/uL (4.8-10.8)
[2021-05-18 06:50] LABS: PLATELET COUNT AUTOMATED 93 10*3/uL (130-400)
[2021-05-18 08:00] VITALS: BP 124/58
[2021-05-18 12:00] VITALS: BP 110/60
[2021-05-18 16:00] VITALS: BP 110/53
[2021-05-18 18:23] LABS: HEMATOCRIT 27.7 % (37.0-47.0); MEAN CORPUSCULAR HGB 30.7 pg (27.0-31.0); MEAN CORPUSCULAR HGB CONC 28.9 g/dl (33.0-37.0); MEAN PLATELET VOLUME 13.8 fl (9.6-12.3); RED BLOOD COUNT 2.61 10*6/uL (4.10-5.10); RED CELL DISTRI WIDTH 15.5 % (0-14.5); WHITE BLOOD COUNT 4.1 10*3/uL (4.8-10.8)
[2021-05-18 18:44] LABS: MEAN CELL VOLUME 106.1 fl (81.0-99.0); PLATELET COUNT AUTOMATED 53 10*3/uL (130-400)
[2021-05-18 18:57] LABS: BURR CELLS MODERATE; PLATELET SUFFICIENCY LOW (NORMAL); TOTAL CELLS COUNTED 100 #CELLS
[2021-05-18 20:00] VITALS: BP 115/61
[2021-05-19] VITALS: BP 105/53
[2021-05-19 07:25] LABS: CREATININE 1.88 mg/dL (0.55-1.02); POTASSIUM 4.2 mmol/L (3.5-5.1)
[2021-05-19 07:41] LABS: ACT PARTIAL THROMBO TIME 39.6 SECONDS (20.0-32.1)
[2021-05-19 07:52] LABS: BASO % 0.7 % (0.0-1.0); EOS # 0.5 10*3/uL (0.0-0.4); EOS % 11.6 % (1.0-4.0); HEMATOCRIT 25.4 % (37.0-47.0); LYMPH % 25.6 % (27.0-41.0); MEAN CORPUSCULAR HGB CONC 30.3 g/dl (33.0-37.0); MEAN PLATELET VOLUME 12.6 fl (9.6-12.3); MONO # 0.5 10*3/uL (0.1-1.0); MONO % 11.8 % (3.0-9.0); NEUT % 49.8 % (47.0-73.0); RED BLOOD COUNT 2.48 10*6/uL (4.10-5.10); RED CELL DISTRI WIDTH 15.4 % (0-14.5); WHITE BLOOD COUNT 4.1 10*3/uL (4.8-10.8)
[2021-05-19 07:57] LABS: MEAN CELL VOLUME 102.4 fl (81.0-99.0); PLATELET COUNT AUTOMATED 85 10*3/uL (130-400)
[2021-05-19 08:00] VITALS: BP 128/66
[2021-05-19 12:00] VITALS: BP 127/75
[2021-05-19 16:00] VITALS: BP 131/80
[2021-05-19 20:00] VITALS: BP 145/66
[2021-05-20] VITALS (7 sets, daily range): BP systolic 135–177; BP diastolic 56–86
[2021-05-20 06:12] LABS: EOS % 0.4 % (1.0-4.0); HEMATOCRIT 27.5 % (37.0-47.0); LYMPH # 0.3 10*3/uL (1.3-4.4); LYMPH % 13.4 % (27.0-41.0); MEAN CELL VOLUME 101.1 fl (81.0-99.0); MEAN CORPUSCULAR HGB 31.3 pg (27.0-31.0); MEAN CORPUSCULAR HGB CONC 30.9 g/dl (33.0-37.0); MONO % 1.7 % (3.0-9.0); NEUT # 1.9 10*3/uL (2.3-7.9); NEUT % 83.2 % (47.0-73.0); PLATELET COUNT AUTOMATED 87 10*3/uL (130-400); RED BLOOD COUNT 2.72 10*6/uL (4.10-5.10); RED CELL DISTRI WIDTH 15.2 % (0-14.5); WHITE BLOOD COUNT 2.3 10*3/uL (4.8-10.8)
[2021-05-20 06:39] LABS: ALBUMIN 2.1 gm/dl (3.1-4.5); CREATININE 1.69 mg/dL (0.55-1.02); POTASSIUM 4.6 mmol/L (3.5-5.1); TOTAL PROTEIN 6.7 gm/dL (6.4-8.2)
[2021-05-21] VITALS: BP 133/74
[2021-05-21 07:00] LABS: HEMATOCRIT 25.6 % (37.0-47.0); MEAN CELL VOLUME 98.5 fl (81.0-99.0); MEAN CORPUSCULAR HGB 31.5 pg (27.0-31.0); MEAN PLATELET VOLUME 13.4 fl (9.6-12.3); PLATELET COUNT AUTOMATED 84 10*3/uL (130-400); RED CELL DISTRI WIDTH 15.5 % (0-14.5); WHITE BLOOD COUNT 4.7 10*3/uL (4.8-10.8)
[2021-05-21 07:10] LABS: ACT PARTIAL THROMBO TIME 53.7 SECONDS (20.0-32.1)
[2021-05-21 07:13] LABS: CREATININE 1.55 mg/dL (0.55-1.02); POTASSIUM 4.3 mmol/L (3.5-5.1); TOTAL PROTEIN 6.4 gm/dL (6.4-8.2)
[2021-05-21 08:00] VITALS: BP 130/68
[2021-05-21 08:30] LABS: TOTAL CELLS COUNTED 100 #CELLS
[2021-05-21 08:31] LABS: PLATELET SUFFICIENCY LOW (NORMAL)
[2021-05-21 12:00] VITALS: BP 104/52
[2021-05-21 16:00] VITALS: BP 100/55
[2021-05-21 20:00] VITALS: BP 118/58
[2021-05-22] VITALS (9 sets, daily range): BP systolic 117–136; BP diastolic 50–68
[2021-05-22 07:00] LABS: POTASSIUM 4.3 mmol/L (3.5-5.1)
[2021-05-22 07:32] LABS: BASO % 0.8 % (0.0-1.0); EOS # 0.4 10*3/uL (0.0-0.4); EOS % 9.5 % (1.0-4.0); HEMATOCRIT 24.4 % (37.0-47.0); LYMPH # 1.1 10*3/uL (1.3-4.4); LYMPH % 28.9 % (27.0-41.0); MEAN CELL VOLUME 98.4 fl (81.0-99.0); MEAN CORPUSCULAR HGB CONC 31.6 g/dl (33.0-37.0); MEAN PLATELET VOLUME 12.9 fl (9.6-12.3); MONO # 0.3 10*3/uL (0.1-1.0); MONO % 7.1 % (3.0-9.0); NEUT % 53.2 % (47.0-73.0); RED BLOOD COUNT 2.48 10*6/uL (4.10-5.10); RED CELL DISTRI WIDTH 15.7 % (0-14.5); WHITE BLOOD COUNT 3.7 10*3/uL (4.8-10.8)
[2021-05-22 07:33] LABS: PLATELET COUNT AUTOMATED 111 10*3/uL (130-400)
[2021-05-22 07:34] LABS: CREATININE 1.59 mg/dL (0.55-1.02); TOTAL PROTEIN 5.9 gm/dL (6.4-8.2)
[2021-05-22] MEDS ORDERED: AMOXICILLIN500 M2 PO (16:21)
[2021-05-22] MEDS ORDERED: ELIQUIS5 M1 PO (16:21)
== END 2021-05-22 20:23 | DRG 299 ==
LOC: ED 17:04 → 4E 19:38 → EDHOLD 19:38 → 4E 05-16 22:06
PROVIDERS: Emergency Medicine; Hospitalist; Internal Medicine Hematology & Oncology; Internal Medicine Nephrology; Podiatrist; Podiatrist Foot & Ankle Surgery; ADMIT Internal Medicine; ATTEND Internal Medicine
PROC: 30233M1 Transfusion of Nonautologous Plasma Cryoprecipitate into Peripheral Vein, Percutaneous Approach (ICD-10-PCS; principal; 2021-05-20)
DX: I82.411 Acute embolism and thrombosis of right femoral vein (principal); N17.0 Acute kidney failure with tubular necrosis; E43 Unspecified severe protein-calorie malnutrition; N18.4 Chronic kidney disease, stage 4 (severe); N39.0 Urinary tract infection, site not specified; Q61.3 Polycystic kidney, unspecified; I12.9 Hypertensive chronic kidney disease with stage 1 through stage 4 chronic kidney disease, or unspecified chronic kidney disease; R26.2 Difficulty in walking, not elsewhere classified; D53.9 Nutritional anemia, unspecified; B96.20 Unspecified Escherichia coli [E. coli] as the cause of diseases classified elsewhere; I89.0 Lymphedema, not elsewhere classified; R73.9 Hyperglycemia, unspecified; E86.0 Dehydration; I82.431 Acute embolism and thrombosis of right popliteal vein; B96.89 Other specified bacterial agents as the cause of diseases classified elsewhere; R74.01 Elevation of levels of liver transaminase levels; I82.451 Acute embolism and thrombosis of right peroneal vein; M1A.9XX0 Chronic gout, unspecified, without tophus (tophi); Z20.822 Contact with and (suspected) exposure to COVID-19; E55.9 Vitamin D deficiency, unspecified; E66.01 Morbid (severe) obesity due to excess calories; L60.2 Onychogryphosis; E53.8 Deficiency of other specified B group vitamins; K59.00 Constipation, unspecified; D69.59 Other secondary thrombocytopenia; T45.515A Adverse effect of anticoagulants, initial encounter; Y92.89 Other specified places as the place of occurrence of the external cause; Z82.49 Family history of ischemic heart disease and other diseases of the circulatory system; Z79.899 Other long term (current) drug therapy

== ENCOUNTER → 2021-06-20 | Outpatient (CLI) | payer MEDICARE ==
[2021-06-20] VITALS (7 sets, daily range): BP systolic 111–146; BP diastolic 77–99
[~2021-06-20] MED LIST changes: +AMOXICILLIN500 M2 PO; +ELIQUIS5 M1 PO
== END | disposition home or self-care (01) ==
LOC: TRNFUSION 00:59
PROVIDERS: ATTEND Internal Medicine
DX: D64.9 Anemia, unspecified (principal)

== ENCOUNTER → 2021-10-25 | Day surgery (SDC) | payer OTHER ==
[~2021-10-25] VITALS: Ht 137.1 cm; Wt 103.4 kg
[~2021-10-25] MED LIST changes: +ALLOPURINOL100 MG PO; +IRON18 MG PO; +PHARMASSURE FO0.4 MG PO
[2021-10-25 07:06] VITALS: BP 174/82
[2021-10-25 07:47] VITALS: BP 121/62
[2021-10-25 08:00] VITALS: BP 125/69
[2021-10-25 08:17] VITALS: BP 122/71
== END | disposition home or self-care (01) ==
LOC: SDC 09-24 08:45
PROVIDERS: ATTEND Surgery
DX: Z12.11 Encounter for screening for malignant neoplasm of colon (principal); D12.0 Benign neoplasm of cecum; K57.30 Diverticulosis of large intestine without perforation or abscess without bleeding; I10 Essential (primary) hypertension; M10.9 Gout, unspecified; G62.9 Polyneuropathy, unspecified; K21.9 Gastro-esophageal reflux disease without esophagitis; Z79.01 Long term (current) use of anticoagulants; Z79.82 Long term (current) use of aspirin; Z79.899 Other long term (current) drug therapy

== ENCOUNTER → 2024-04-15 | Outpatient (CLI) | payer MEDICARE, OTHER ==
[~2024-04-15] MED LIST changes: +DULCOLAX10 M1 R; +FUROSEMIDE20 M1 PO; +HEALTHYLAX17 GM PO; +IRON325 M3 PO; +Iodixanol 320 100 ML VIAL IV ONE; +KLOR-CON M1010 ME1 PO; +LEVOTHYROXINE125 MC1 PO; +LIPITOR20 MG PO; +MOM30 M1 PO; +NATURE'S BLEND F1 MG PO; +ORAZINC50 MG PO; +OYSTER SHELL C1 EAC9 PO; +TYLENOL EXTRA500 M2 PO; +VITAMIN B-650 M1 PO; +VITAMIN B1250 MCG PO; +VITAMIN B6100 MG/2.5 PO; +VITAMIN D3125 MC1 PO; +XARELTO20 M1 PO; +ZYLOPRIM100 MG PO
== END | disposition home or self-care (01) ==
LOC: CT 11:53
PROVIDERS: ATTEND Physician Assistant
DX: C18.0 Malignant neoplasm of cecum (principal); D50.9 Iron deficiency anemia, unspecified; K80.20 Calculus of gallbladder without cholecystitis without obstruction; K44.9 Diaphragmatic hernia without obstruction or gangrene

== ENCOUNTER → 2024-07-02 | Outpatient (CLI) | payer MEDICARE, OTHER ==
[~2024-07-02] MED LIST changes: -Iodixanol 320 100 ML VIAL IV ONE
== END | disposition home or self-care (01) ==
LOC: CT 03:06
PROVIDERS: ATTEND Internal Medicine
DX: K80.20 Calculus of gallbladder without cholecystitis without obstruction (principal); K44.9 Diaphragmatic hernia without obstruction or gangrene; N26.1 Atrophy of kidney (terminal); K59.00 Constipation, unspecified; K57.30 Diverticulosis of large intestine without perforation or abscess without bleeding; K43.9 Ventral hernia without obstruction or gangrene; R10.84 Generalized abdominal pain

== ENCOUNTER 2025-06-06 19:24 | Inpatient (IN) | payer MEDICARE, OTHER ==
[~2025-06-06] VITALS: Ht 165 cm; Wt 106.3 kg
[2025-06-06] MEDS ORDERED: Ondansetron Hydrochloride 4 MG/2 ML VIAL IV ONE (19:35)
[2025-06-06] MEDS ORDERED: SODIUM CHLORIDE 0.9% 1,000 ML IV ONE ×3 (19:35→22:15)
[2025-06-06 20:02] LABS: MEAN CELL VOLUME 102.5 fl (81.0-99.0); MEAN CORPUSCULAR HGB 33.0 pg (27.0-31.0); MEAN PLATELET VOLUME 10.4 fl (9.6-12.3); NUCLEATED RED BLOOD CELL 0.0 % (0.0-0.0); NUCLEATED RED BLOOD CELL 0.0 10*3/uL (0.0-0.0); PLATELET COUNT AUTOMATED 640 10*3/uL (130-400); RED CELL DISTRI WIDTH 13.1 % (0-14.5)
[2025-06-06 20:05] VITALS: BP 69/37
[2025-06-06] MEDS ORDERED: Ondansetron Hydrochloride 4 MG TAB PO ONE (20:05)
[2025-06-06 20:14] LABS: MANUAL DIFF REFLEX YES
[2025-06-06 20:24] LABS: BUN 27.0 mg/dl (9-23); SGPT/ALT 12.0 U/L (5-49)
[2025-06-06 21:00] VITALS: BP 70/58
[2025-06-06 21:21] LABS: BASOPHILS 1 % (0-1)
[2025-06-06 21:23] LABS: PLATELET SUFFICIENCY HIGH (NORMAL)
[2025-06-06] MEDS ORDERED: Lidocaine Hydrochloride 1% 2 ML VIAL IO ONE ×2 (21:50→22:00)
[2025-06-06 22:52] VITALS: BP 138/105
[2025-06-07] VITALS (10 sets, daily range): BP systolic 25–139; BP diastolic 0–112
[2025-06-07] MEDS ORDERED: VANCOMYCIN HCL 125 MG CAPSULE PO ONE (01:50)
[2025-06-07] MEDS ORDERED: NEURONTIN100 MG PO (02:14)
[2025-06-07] MEDS ORDERED: LASIX40 MG PO (02:14)
[2025-06-07] MEDS ORDERED: TREXALL15 MG PO (02:15)
[2025-06-07] MEDS ORDERED: OMEPRAZOLE40 MG PO (02:16)
[2025-06-07] MEDS ORDERED: VANCOCIN125 MG PO (02:17)
[2025-06-07] MEDS ORDERED: BISACODYL 10 MG SUPP R PRN (02:25)
[2025-06-07] MEDS ORDERED: Ondansetron Hydrochloride 4 MG/2 ML VIAL IV PRN (02:25)
[2025-06-07] MEDS ORDERED: Acetaminophen/Hydrocodone 5 MG/325 MG TABLET PO PRN (02:25)
[2025-06-07] MEDS ORDERED: ACETAMINOPHEN 325 MG TAB PO PRN (02:25)
[2025-06-07] MEDS ORDERED: ACETAMINOPHEN 650 MG SUPP R PRN (02:25)
[2025-06-07] MEDS ORDERED: BISACODYL 5 MG TAB PO PRN (02:25)
[2025-06-07 04:25] LABS: MEAN CELL VOLUME 103.5 fl (81.0-99.0); MEAN CORPUSCULAR HGB 32.8 pg (27.0-31.0); MEAN PLATELET VOLUME 9.9 fl (9.6-12.3); NUCLEATED RED BLOOD CELL 0.0 % (0.0-0.0); NUCLEATED RED BLOOD CELL 0.0 10*3/uL (0.0-0.0); RED CELL DISTRI WIDTH 13.2 % (0-14.5)
[2025-06-07 04:27] LABS: MANUAL DIFF REFLEX YES
[2025-06-07 04:33] LABS: ABG BASE EXCESS -7.9 mmol/L (-2.0-3.0); ABG O2 SATURATION 71.2 % (94.0-98.0); ARTERIAL BLOOD GAS PH 7.296 (7.350-7.450)
[2025-06-07 04:35] LABS: ARTERIAL BLOOD GAS PO2 39.2 mmHg (83.0-108.0)
[2025-06-07] MEDS ORDERED: NOREPINEPHRINE BITARTRATE/D5W 250 ML IV SCH (04:40)
[2025-06-07] MEDS ORDERED: NOREPINEPHRINE BITARTRATE/D5W 250 ML IV ONE ×3 (05:09→15:31)
[2025-06-07 05:13] LABS: BUN 32.0 mg/dl (9-23); FREE T4 1.15 ng/dl (0.89-1.76); SGPT/ALT 11.0 U/L (5-49)
[2025-06-07] MEDS ORDERED: EPINEPHrine Hydrochloride 1 MG/10 ML SYR IV ONE ×2 (05:40→05:43)
[2025-06-07] MEDS ORDERED: EPINEPHrine IN 0.9 % SOD CHLOR 250 ML IV ONE ×3 (05:43→13:28)
[2025-06-07 06:08] LABS: BILIRUBIN 2+ (Negative); BLOOD 3+ (Negative); CLARITY Turbid (Clear); COLOR Dark Yellow (Yellow); KETONE Trace (Negative); LEUKO ESTERASE 1+ (Negative); NITRITE Positive (Negative); PH 5.0 (4.5-8.0); SPECIFIC GRAVITY 1.020 (1.001-1.030); UROBILINOGEN 1.0 E.U./dl (0.0-1.0)
[2025-06-07] MEDS ORDERED: Heparin Sodium/Sodium Chlori 500 ML IV ONE (06:14)
[2025-06-07 06:24] LABS: BACTERIA 1+; EPITHELIAL CELLS TNTC
[2025-06-07 06:25] LABS: CALCIUM OXALATE CRYSTALS 1+; RBC 21-30 rbc/hpf (0-2)
[2025-06-07 07:06] LABS: PLATELET SUFFICIENCY HIGH (NORMAL)
[2025-06-07 07:11] LABS: PLATELET COUNT AUTOMATED 596 10*3/uL (130-400)
[2025-06-07] MEDS ORDERED: Piperacillin Sodium/Tazobact 2.25 GM in SODIUM CHLORIDE 0.9% 50 ML IV SCH (08:00)
[2025-06-07] MEDS ORDERED: VASOPRESSIN 100 ML IV SCH (08:00)
[2025-06-07] MEDS ORDERED: DEXTROSE 5% IV SCH (08:05)
[2025-06-07] MEDS ORDERED: NOREPINEPHRINE BITARTRATE IV SCH (08:05)
[2025-06-07 08:09] LABS: ABG O2 SATURATION 99.2 % (94.0-98.0); ARTERIAL BLOOD GAS PO2 181.6 mmHg (83.0-108.0)
[2025-06-07 08:10] LABS: ABG BASE EXCESS -18.0 mmol/L (-2.0-3.0)
[2025-06-07] MEDS ORDERED: SODIUM CHLORIDE 0.9% IV SCH ×2 (08:10→10:00)
[2025-06-07] MEDS ORDERED: EPINEPHRINE HYDROCHLORIDE IV SCH ×2 (08:10→10:00)
[2025-06-07 08:12] LABS: ARTERIAL BLOOD GAS PH 7.105 (7.350-7.450)
[2025-06-07] MEDS ORDERED: VASOPRESSIN 100 ML IV ONE (08:15)
[2025-06-07] MEDS ORDERED: ETOMIDATE 20 MG/10 ML VIAL IV ONE (08:30)
[2025-06-07] MEDS ORDERED: Phenylephrine Hydrochloride 250 ML IV ONE (08:35)
[2025-06-07] MEDS ORDERED: VANCOMYCIN HCL 1,250 MG in SODIUM CHLORIDE 0.9% 250 ML IV SCH (09:00)
[2025-06-07] MEDS ORDERED: Albuterol Sulf/Ipratropium 3 ML VIAL NEB SCH (09:05)
[2025-06-07] MEDS ORDERED: SODIUM BICARBONATE 50 MEQ/50 ML VIAL IV ONE (09:25)
[2025-06-07] MEDS ORDERED: Hydrocortisone Sodium Succin 100 MG/2 ML VIAL IV SCH (09:40)
[2025-06-07] MEDS ORDERED: Lactobacillus Acidophilus/LA 1 TAB TAB PO SCH (10:00)
[2025-06-07] MEDS ORDERED: Heparin Sodium/Sodium Chlori 1,000 UNITS/500 ML BAG IV SCH (10:00)
[2025-06-07] MEDS ORDERED: VANCOMYCIN HCL 250 MG CAPSULE PO SCH (10:00)
[2025-06-07] MEDS ORDERED: SODIUM BICARBONATE 150 MEQ in DEXTROSE 5% 1,000 ML IV SCH (10:05)
[2025-06-07] MEDS ORDERED: Phenylephrine Hydrochloride 250 ML IV SCH (10:45)
[2025-06-07] MEDS ORDERED: SODIUM CHLORIDE 0.9% 500 ML IV ONE (12:05)
[2025-06-07] MEDS ORDERED: LINEZOLID 300 ML IV SCH (14:00)
== END 2025-06-07 15:32 | disposition hospice, inpatient (51) | DRG 871 ==
LOC: ED 19:24 → ICCU 06-07 01:54 → 4E 06-07 01:54 → EDHOLD 06-07 01:54 → 5E 06-07 02:13 → EDHOLD 06-07 02:13 → 5E 06-07 02:13 → 4E 06-07 02:52 → ICCU 06-07 07:04
PROVIDERS: Internal Medicine; Student in an Organized Health Care Education/Training Program; ADMIT Internal Medicine; ATTEND Internal Medicine
PROC: 0BH17EZ Insertion of Endotracheal Airway into Trachea, Via Natural or Artificial Opening (ICD-10-PCS; principal; 2025-06-07)
PROC: 5A1935Z Respiratory Ventilation, Less than 24 Consecutive Hours (ICD-10-PCS; 2025-06-07)
PROC: 06HM33Z Insertion of Infusion Device into Right Femoral Vein, Percutaneous Approach (ICD-10-PCS; 2025-06-07)
PROC: B54CZZA Ultrasonography of Left Lower Extremity Veins, Guidance (ICD-10-PCS; 2025-06-07)
PROC: 05HM33Z Insertion of Infusion Device into Right Internal Jugular Vein, Percutaneous Approach (ICD-10-PCS; 2025-06-07)
PROC: B543ZZA Ultrasonography of Right Jugular Veins, Guidance (ICD-10-PCS; 2025-06-07)
DX: A41.9 Sepsis, unspecified organism (principal); E43 Unspecified severe protein-calorie malnutrition; J69.0 Pneumonitis due to inhalation of food and vomit; J96.01 Acute respiratory failure with hypoxia; N17.0 Acute kidney failure with tubular necrosis; G93.41 Metabolic encephalopathy; R65.21 Severe sepsis with septic shock; I21.4 Non-ST elevation (NSTEMI) myocardial infarction; E87.1 Hypo-osmolality and hyponatremia; N39.0 Urinary tract infection, site not specified; A09 Infectious gastroenteritis and colitis, unspecified; Z20.822 Contact with and (suspected) exposure to COVID-19; D53.9 Nutritional anemia, unspecified; R34 Anuria and oliguria; D75.839 Thrombocytosis, unspecified; I12.9 Hypertensive chronic kidney disease with stage 1 through stage 4 chronic kidney disease, or unspecified chronic kidney disease; E03.9 Hypothyroidism, unspecified; I73.9 Peripheral vascular disease, unspecified; E78.2 Mixed hyperlipidemia; K44.9 Diaphragmatic hernia without obstruction or gangrene; M1A.9XX0 Chronic gout, unspecified, without tophus (tophi); E55.9 Vitamin D deficiency, unspecified; N18.32 Chronic kidney disease, stage 3b; I89.0 Lymphedema, not elsewhere classified; Z79.899 Other long term (current) drug therapy; Z79.01 Long term (current) use of anticoagulants; Z79.2 Long term (current) use of antibiotics; Z90.49 Acquired absence of other specified parts of digestive tract; Z98.891 History of uterine scar from previous surgery; Z82.49 Family history of ischemic heart disease and other diseases of the circulatory system; Z82.3 Family history of stroke; Z80.8 Family history of malignant neoplasm of other organs or systems; Z86.718 Personal history of other venous thrombosis and embolism; Z51.5 Encounter for palliative care; Z88.8 Allergy status to other drugs, medicaments and biological substances; Z68.39 Body mass index [BMI] 39.0-39.9, adult

== ENCOUNTER 2025-06-07 15:39 | Inpatient (IN) | payer OTHER ==
[~2025-06-07] VITALS: Ht 162.6 cm; Wt 106.1 kg
[~2025-06-07 15:39] MED LIST changes: +LASIX40 MG PO; +NEURONTIN100 MG PO; +OMEPRAZOLE40 MG PO; +TREXALL15 MG PO; +VANCOCIN125 MG PO
[2025-06-07] MEDS ORDERED: diazePAM 10 MG/2 ML SYR IV ONE (15:50)
[2025-06-07] MEDS ORDERED: diazePAM 10 MG/2 ML SYR IV PRN (15:55)
[2025-06-07 16:00] VITALS: BP 40/0
[2025-06-07] MEDS ORDERED: MORPHINE SULFATE IV SCH (16:00)
[2025-06-07] MEDS ORDERED: SODIUM CHLORIDE 0.9% IV SCH (16:00)
== END 2025-06-07 16:08 | DRG 871 ==
LOC: ICCU 15:39
PROVIDERS: ADMIT Internal Medicine; ATTEND Internal Medicine
PROC: 0BH17EZ Insertion of Endotracheal Airway into Trachea, Via Natural or Artificial Opening (ICD-10-PCS; principal; 2025-06-07)
PROC: 5A1935Z Respiratory Ventilation, Less than 24 Consecutive Hours (ICD-10-PCS; 2025-06-07)
DX: A41.9 Sepsis, unspecified organism (principal); I21.4 Non-ST elevation (NSTEMI) myocardial infarction; R65.21 Severe sepsis with septic shock; N39.0 Urinary tract infection, site not specified; Z51.5 Encounter for palliative care